=== PATIENT | male | born 1960 | race Caucasian/White ===

== ENCOUNTER 2018-08-24 09:59 | Emergency (ER) | payer OTHER ==
[2018-08-24 10:56] LABS: Anion Gap 13 mmol/L (10-20); BUN (Urea Nitrogen) 13 mg/dL (8.4-25.7); Calc. Creatinine Clearance 0 mL/min (70-130); Calcium 9.4 mg/dL (7.8-10.44); Carbon Dioxide 24 mmol/L (22-29); Chloride 106 mmol/L (98-107); Estimated GFR-MDRD 74; Glucose 82 mg/dL (70-105); Potassium 4.1 mmol/L (3.5-5.1); Sodium 139 mmol/L (136-145)
--- NOTE | 2018-08-24 13:00 | RAD ---
LEFT ELBOW 2 VIEWS: HISTORY: Rash on the left arm, left elbow pain. FINDINGS/IMPRESSION: No fracture, dislocation, or bony destruction is identified. POS: [facility]
== END 2018-08-24 11:26 | disposition home or self-care (01) ==
LOC: NAV ERS 09:59
DX: M25.522 Pain in left elbow (principal); R21 Rash and other nonspecific skin eruption; I10 Essential (primary) hypertension; E78.5 Hyperlipidemia, unspecified; K21.9 Gastro-esophageal reflux disease without esophagitis; F17.210 Nicotine dependence, cigarettes, uncomplicated; Z79.899 Other long term (current) drug therapy
CPT/HCPCS: 36415; 80048